=== PATIENT | female | born 1980 | race Caucasian/White ===

== ENCOUNTER 2017-10-28 18:50 | Emergency (ER) | payer OTHER ==
[~2017-10-28] VITALS: Ht 165.1 cm; Wt 53.2 kg
[2017-10-28 18:51] VITALS: BP 145/78; PULSE 93; RESP 18; TEMP 98.7; O2SAT 99
--- NOTE | 2017-10-28 20:11 | PD ---
HPI Chief Complaint: Chest Pain Time Seen by Provider: 20:11 Travel History International Travel<30 days: No Contact w/Intl Traveler<30days: No Traveled to known affect area: No PFSH Past Medical History Respiratory: Yes (ASTHMA) Allergies-Medications (Allergen,Severity, Reaction): Coded Allergies: Penicillins (Verified Allergy, Unknown, 10/28/17) Data Data Last Documented VS Vital Signs Date Time Temp Pulse Resp B/P (MAP) Pulse Ox O2 Delivery O2 Flow Rate FiO2 10/28/17 18:51 98.7 93 18 145/78 (100) 99 Room Air Orders Orders Electrocardiogram (10/28/17 19:22) Basic Metabolic Panel (Bmp) (10/28/17 19:22) Ckmb (Isoenzyme) Profile (10/28/17 19:22) Complete Blood Count With Diff (10/28/17 19:22) Magnesium (Mg) (10/28/17 19:22) Prothrombin Time / Inr (Pt) (10/28/17 19:22) Act Partial Throm Time (Ptt) (10/28/17 19:22) Troponin I (10/28/17 19:22) Chest, Pa & Lat (10/28/17 19:22) Urinalysis - C+S If Indicated (10/28/17 19:22) Ed Urine Pregnancytest Poc (10/28/17 19:22) Pat Raygoza Oct 28, 2017 20:11
--- NOTE | 2017-10-28 20:18 | RADRPT ---
EXAM DATE/TIME: 10/28/2017 19:58 [facility] COMPARISON: No previous studies available for comparison. INDICATIONS : Pneumonia, dyspnea. MEDICAL HISTORY : Asthma. SURGICAL HISTORY : None. ENCOUNTER: Initial ACUITY: 3 weeks PAIN SCORE: 0/10 LOCATION: Chest. FINDINGS: PA and lateral views of the chest demonstrate the lungs to be symmetrically aerated without evidence of mass, infiltrate or effusion. The cardiomediastinal contours are unremarkable. Osseous structure s are intact. CONCLUSION: No acute cardiopulmonary process. Hernandez Sultana MD on October 28, 2017 at 20:16 Board Certified Radiologist. This report was verified electronically.
[2017-10-28 20:33] VITALS: BP 122/74; PULSE 88; RESP 18; TEMP 98.6; O2SAT 94
[2017-10-28] MEDS ORDERED: ASPIRIN 81 MG CHEW TAB CHEW ONE (20:45)
[2017-10-28] MEDS ORDERED: LEVA500T33 PO (20:48)
[2017-10-28] MEDS ORDERED: JUNE1.5T PO (20:48)
[2017-10-28] MEDS ORDERED: ACYC400T PO (20:48)
--- NOTE | 2017-10-28 20:53 | PD ---
HPI Chief Complaint: Chest Pain Time Seen by Provider: 20:16 Travel History International Travel<30 days: No Contact w/Intl Traveler<30days: No Traveled to known affect area: No History of Present Illness HPI Patient is a 37-year-old female coming in after seeing her primary care doctor this evening. An EKG was done because she's had chest pain secondary to a cough. EKG was equivocal bowl and she comes in sent in by the PCP. For 1 month she has had bronchitis she has been on multiple antibiotics as well as an inhaler without relief of her symptoms the pain is in her chest it is substernal it is constant it is exacerbated by coughing it is not alleviated by Levaquin or the Ceftin she was on. In the ER patient is nontoxic appearing symptoms have been on for 1 month on initial exam I hear crackles in her right middle lobe. PFSH Past Medical History Asthma: Yes Respiratory: Yes (ASTHMA) Pneumonia: Yes (HX OF BILAT PNEUMONIA) Tetanus Vaccination: > 5 Years Influenza Vaccination: No ?: Unknown Past Surgical History Surgical History: No Previous Surgery Social History Alcohol Use: Yes (OCCASIONALLY) Tobacco Use: No Substance Use: No Allergies-Medications (Allergen,Severity, Reaction): Coded Allergies: Penicillins (Verified Allergy, Unknown, 10/28/17) Reported Meds & Prescriptions Reported Meds & Active Scripts Active Azithromycin 250 Mg Tab 250 Mg PO DIRECTED Take 2 tabs (500 mg) on day 1 then 1 tab daily x 4 days. Atrovent HFA 12.9 GM Inh (Ipratropium [place]) 17 Mcg/Actuation Aer 2 Puff INH Q6HR PRN Reported (Norethindrone-Ethinyl Estradiol-Fe) 1.5-30 Mg-Mcg Tab 1 Tab PO DAILY Levaquin (Levofloxacin) 500 Mg Tablet 500 Mg PO DAILY 10 Days Acyclovir Unknown Strength Tab Unknown Dose PO DAILY Review of Systems Except as stated in HPI: all other systems reviewed are Neg General / Constitutional: Positive: Chills Cardiovascular: Positive: Chest Pain or Discomfort Respiratory: Positive: Cough, Shortness of Breath Physical Exam Narrative GENERAL: [-] Patient appears nontoxic in no distress no diaphoresis no signs of respiratory or cardiac illness at this time SKIN: Focused skin assessment warm/dry. HEAD: Atraumatic. Normocephalic. EYES: Pupils equal and round. No scleral icterus. No injection or drainage. ENT: No nasal bleeding or discharge. Mucous membranes pink and moist. NECK: Trachea midline. No JVD. CARDIOVASCULAR: Regular rate and rhythm. No murmur appreciated. RESPIRATORY: There are crackles heard in the right middle lobe all other ibanez are clear. GASTROINTESTINAL: Abdomen soft, non-tender, nondistended. Hepatic and splenic margins not palpable. MUSCULOSKELETAL: No obvious deformities. No clubbing. No cyanosis. No edema. NEUROLOGICAL: Awake and alert. No obvious cranial nerve deficits. Motor grossly within normal limits. Normal speech. PSYCHIATRIC: Appropriate mood and affect; insight and judgment normal. Data Data Last Documented VS Vital Signs Date Time Temp Pulse Resp B/P (MAP) Pulse Ox O2 Delivery O2 Flow Rate FiO2 10/28/17 23:39 10/28/17 21:34 98 21 10/28/17 20:33 Room Air 10/28/17 20:33 98.6 88 18 Orders Orders Electrocardiogram (10/28/17 19:22) Basic Metabolic Panel (Bmp) (10/28/17 19:22) Ckmb (Isoenzyme) Profile (10/28/17 19:22) Complete Blood Count With Diff (10/28/17 19:22) Magnesium (Mg) (10/28/17 19:22) Prothrombin Time / Inr (Pt) (10/28/17 19:22) Act Partial Throm Time (Ptt) (10/28/17 19:22) Troponin I (10/28/17 19:22) Chest, Pa & Lat (10/28/17 19:22) Ed Urine Pregnancytest Poc (10/28/17 19:22) Aspirin Chew (Aspirin Chew) (10/28/17 20:45) Albuterol-Ipratropium Neb (Duoneb Neb) (10/28/17 21:00) Ct Thorax/ Chest Wo Iv [place]ras (10/28/17 ) Ed Discharge Order (10/28/17 23:43) Labs Laboratory Tests Test 10/28/17 20:30 White Blood Count 9.3 TH/MM3 Red Blood Count 3.66 MIL/MM3 Hemoglobin 13.8 GM/DL Hematocrit 36.6 % Mean Corpuscular Volume 99.9 FL Mean Corpuscular Hemoglobin 37.8 PG Mean Corpuscular Hemoglobin Concent 37.8 % Red Cell Distribution Width 13.2 % Platelet Count 274 TH/MM3 Mean Platelet Volume 7.3 FL Neutrophils (%) (Auto) 73.4 % Lymphocytes (%) (Auto) 17.8 % Monocytes (%) (Auto) 5.1 % Eosinophils (%) (Auto) 3.0 % Basophils (%) (Auto) 0.7 % Neutrophils # (Auto) 6.8 TH/MM3 Lymphocytes # (Auto) 1.6 TH/MM3 Monocytes # (Auto) 0.5 TH/MM3 Eosinophils # (Auto) 0.3 TH/MM3 Basophils # (Auto) 0.1 TH/MM3 CBC Comment AUTO DIFF Differential Comment AUTO DIFF CONFIRMED Platelet Estimate NORMAL Platelet Morphology Comment NORMAL Prothrombin Time 11.0 SEC Prothromb Time International Ratio 1.0 RATIO Activated Partial Thromboplast Time 28.4 SEC Blood Urea Nitrogen 8 MG/DL Creatinine 0.80 MG/DL Random Glucose 100 MG/DL Calcium Level 8.9 MG/DL Magnesium Level 1.9 MG/DL Sodium Level 136 MEQ/L Potassium Level 3.2 MEQ/L Chloride Level 101 MEQ/L Carbon Dioxide Level 25.8 MEQ/L Anion Gap 9 MEQ/L Estimat Glomerular Filtration Rate 80 ML/MIN Total Creatine Kinase 67 U/L Troponin I LESS THAN 0.02 NG/ML MDM Medical Decision Making Medical Screen Exam Complete: Yes Emergency Medical Condition: Yes Differential Diagnosis pt could have scarring from prior bacterial PNA vs viral bronchitis that continues vs inflammation from prior PNA or lung MASS or fungal PNA Narrative Course exam reveals continued crackles iRML I offer her CT since she has been through 3 courses of antibx woithout improvement . PT ct show inflammation in the RLL that correlate with the exam no mass , infiltrate possible vs scarring or atelectasis, D/c with Atrovent HFA and azithro if no improvement in the next week to start Azithro... pt to follow up as outpt Diagnosis Primary Impression: RLL pneumonia Patient Instructions: General Instructions, Pneumonia (ED) Scripts Azithromycin (Azithromycin) 250 Mg Tab 250 MG PO DIRECTED for Infection, #6 TAB 0 Refills Take 2 tabs (500 mg) on day 1 then 1 tab daily x 4 days. Prov: Jem Guerrero MD 10/28/17 Ipratropium HFA 12.9 GM Inh (Atrovent HFA 12.9 GM Inh) 17 Mcg/Actuation Aer 2 PUFF INH Q6HR Y for SHORTNESS OF BREATH, #1 INHALER 0 Refills Prov: Jem Guerrero MD 10/28/17 Disposition: 01 DISCHARGE HOME Jem Guerrero MD Oct 28, 2017 20:53
[2017-10-28] MEDS ORDERED: RESP: ALBUTEROL 2.5 MG/IPRATROPIUM 0.5 MG NEB (SCH) NEB ONE (21:00)
[2017-10-28 21:34] VITALS: O2SAT 98
[2017-10-28 21:49] LABS: AUTOMATED NEUTROPHIL # 6.8 TH/MM3 (1.8-7.7); BASOPHIL # 0.1 TH/MM3 (0-0.2); BASOPHIL % 0.7 % (0.0-2.0); EOSINOPHIL # 0.3 TH/MM3 (0-0.4); HEMATOCRIT 36.6 % (35.0-46.0); LYMPH % 17.8 % (9.0-44.0); LYMPHOCYTE # 1.6 TH/MM3 (1.0-4.8); MEAN CELL VOLUME 99.9 FL (80.0-100.0); MEAN CORPUSCULAR HEMOGLOBIN 37.8 PG (27.0-34.0); MONO % 5.1 % (0.0-8.0); NEUT % 73.4 % (16.0-70.0); PLATELET COUNT 274 TH/MM3 (150-450); RED BLOOD COUNT 3.66 MIL/MM3 (4.00-5.30); RED CELL DISTRIBUTION WIDTH 13.2 % (11.6-17.2); WHITE BLOOD COUNT 9.3 TH/MM3 (4.0-11.0)
[2017-10-28 21:52] LABS: HEMO FLAGS AUTO DIFF; MEAN CORPUSCULAR HGB CONC 37.8 % (32.0-36.0)
[2017-10-28 21:56] LABS: APTT (PATIENT) 28.4 SEC (24.3-30.1)
[2017-10-28 22:00] LABS: ANION GAP 9 MEQ/L (5-15); BICARBONATE 25.8 MEQ/L (21.0-32.0); BLOOD UREA NITROGEN 8 MG/DL (7-18); CHLORIDE 101 MEQ/L (98-107); GLOMERULAR FILTRATION RATE 80 ML/MIN (>89); MAGNESIUM 1.9 MG/DL (1.5-2.5); POTASSIUM 3.2 MEQ/L (3.5-5.1); SODIUM (NA) 136 MEQ/L (136-145)
[2017-10-28 22:16] LABS: CREATINE KINASE 67 U/L (26-192)
[2017-10-28 22:36] LABS: PLATELET ESTIMATE SMEAR NORMAL (NORMAL); PLATELET MORPHOLOGY NORMAL (NORMAL); SCAN/DIFF AUTO DIFF CONFIRMED
--- NOTE | 2017-10-28 23:06 | RADRPT ---
EXAM DATE/TIME: 10/28/2017 22:50 [facility] COMPARISON: CHEST PA & LAT, October 28, 2017, 19:58. INDICATIONS : Shortness of breath and fever for 2 weeks. RADIATION DOSE: 3.83 CTDIvol (mGy) MEDICAL HISTORY : Asthma. Pneumonia. Bronchitis. SURGICAL HISTORY : None. ENCOUNTER: Initial ACUITY: 2 weeks PAIN SCALE: 0/10 LOCATION: chest TECHNIQUE: Volumetric scanning of the chest was performed. Using automated exposure control and adjustment of t he mA and/or kV according to patient size, radiation dose was kept as low as reasonably achievable to obtain optimal diagnostic quality images. DICOM format image data is available electronically for r eview and comparison. Follow-up recommendations for detected pulmonary nodules are based at a minimum on nodule size and pa tient risk factors according to Fleischner Society Guidelines. FINDINGS: LUNGS: There is increased interstitial markings in the inferior right lower lobe. There is some alveolar den sity seen in the posterior right base. The left lung is clear. PLEURAE: There is no pleural thickening or pleural effusion. MEDIASTINUM: The heart and great vessels demonstrate no acute abnormality. There is no mediastinal or hilar lymph adenopathy. AXILLAE: Within normal limits. No lymphadenopathy. MUSCULOSKELETAL: Within normal limits for patient age. MISCELLANEOUS: The visualized upper abdominal organs demonstrate no acute abnormality. CONCLUSION: Focal increased interstitial markings with some scattered alveolar density seen in the right lower lo be likely related to inflammatory/infectious processes. Robel Felder MD on October 28, 2017 at 23:01 Board Certified Radiologist. This report was verified electronically.
[2017-10-28] MEDS ORDERED: IPRA17I INH (23:40)
[2017-10-28] MEDS ORDERED: AZIT250T3 PO (23:41)
--- NOTE | 2017-10-29 15:40 | EKG ---
Date Performed: 10/28/2017 Time Performed: 20:35:37 PTAGE: 37 years EKG: Sinus rhythm NORMAL ECG NO PREVIOUS TRACING DOCTOR: Marlene Walters Interpretating Date/Time 10/29/2017 15:40:08
== END 2017-10-29 00:03 | disposition home or self-care (01) ==
LOC: NEPC 18:50
DX: J18.9 Pneumonia, unspecified organism (principal); J45.909 Unspecified asthma, uncomplicated; Z88.0 Allergy status to penicillin; Z87.09 Personal history of other diseases of the respiratory system; Z79.2 Long term (current) use of antibiotics; Z79.899 Other long term (current) drug therapy; Z79.3 Long term (current) use of hormonal contraceptives
CPT/HCPCS: 71020; 71250; 80048; 82550; 83735; 84484; 84703; 85025; 85610; 85730; 93005; 94664; 99285